=== PATIENT | male | born 1990 | race Caucasian/White ===

== ENCOUNTER 2021-02-03 13:12 | Emergency (ER) | payer OTHER ==
[~2021-02-03] VITALS: Ht 182.9 cm; Wt 90.7 kg
[2021-02-03] MEDS ORDERED: Prednisone20 MG PO (13:29)
== END 2021-02-03 13:42 | disposition home or self-care (01) ==
LOC: ER 13:12
DX: L23.7 Allergic contact dermatitis due to plants, except food (principal); Z88.1 Allergy status to other antibiotic agents; Z79.52 Long term (current) use of systemic steroids; Z79.899 Other long term (current) drug therapy
CPT/HCPCS: 99282